=== PATIENT | male | born 1950 | race Caucasian/White ===

== ENCOUNTER → 2020-03-03 | Outpatient (CLI) | payer MEDICARE, OTHER | LOC: GMAJ 17:21 | PROVIDERS: ATTEND Family Medicine | DX: N41.0 Acute prostatitis (principal) ==

== ENCOUNTER → 2020-04-30 | Outpatient (CLI) | payer MEDICARE, OTHER | LOC: GMAJ 17:26 | PROVIDERS: ATTEND Family Medicine | DX: N30.01 Acute cystitis with hematuria (principal) ==

== ENCOUNTER → 2020-05-21 | Outpatient (CLI) | payer MEDICARE, OTHER ==
--- NOTE | 2020-05-22 09:28 | CT ---
EXAM DESCRIPTION: Abdoment/Pelvis w/o Contrast CLINICAL HISTORY: 69 years, Male, UTI COMPARISON: None. TECHNIQUE: CT of the abdomen and pelvis is performed according to our non contrast protocol. FINDINGS: The lung bases are clear. Heart size is normal. No pericardial effusion. Liver, spleen, and pancreas are unremarkable. Gallbladder is surgically absent. Adrenal glands appear normal. The right kidney is unremarkable. The left kidney is unremarkable. No renal stones or hydronephrosis. Small bowel loops appear normal in caliber with normal wall thickness. There is no lymphadenopathy, inflammation, or free fluid observed. In the pelvis, the appendix is normal in size with no surrounding inflammation. High density in the appendiceal lumen could be old contrast or small appendicoliths. No inflammation around the cecum or terminal ileum or sigmoid colon. Extensive sigmoid diverticulosis without acute diverticulitis. No stones in the distal ureters or bladder. Large right posterior lateral bladder diverticulum contains urine and air and measures 4.7 cm. Air in the main bladder lumen is also present and the bladder wall is mildly thickened. Sagittal and coronal images show loss of the fat plane between the sigmoid colon and posterior urinary bladder with broad area of increased thickening of the bladder wall. On the coronal images, tiny gas bubble is seen within the wall of the bladder (coronal image 78, series 602 and loss of the fat plane with small gas bubble between the sigmoid colon and bladder wall is seen on images 69 through 76, series 602. 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 Gas bubbles in the bladder wall are seen on sagittal images 108 through 113 with gas in the bladder lumen and gas in the large bladder diverticulum. No fistula to the diverticulum itself. Rectal wall thickness is normal for degree of distention. No free fluid or mass in the pelvis. Prostate appears normal. No inguinal or lower pelvic adenopathy. Coronal and sagittal reformatted images confirm the findings. 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 I discussed results over the phone with the nurse at Dr. Sanchez's office at the time of image interpretation 9:25 AM on 05/22/2020. 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 See above. Large right posterolateral bladder diverticulum. This exam was performed according to our departmental dose-optimization program, which includes automated exposure control, adjustment of the mA and/or kV according to patient size and/or use of iterative reconstruction technique. Total DLP equals 908.61 mGycm. Electronically signed by: Gerald Allan MD 05/22/2020 9:26 AM [facility]
== END ==
LOC: CT 13:44
PROVIDERS: ATTEND Urology
DX: N39.0 Urinary tract infection, site not specified (principal); N32.3 Diverticulum of bladder; K63.9 Disease of intestine, unspecified

== ENCOUNTER 2020-06-06 05:44 | Day surgery (SDC) | payer MEDICARE, OTHER ==
[2020-06-06] MEDS ORDERED: LIDOCAINE 1% 10 ML VIAL INJ ONE (07:00)
[2020-06-06] MEDS ORDERED: PROPOFOL 200 MG/20 ML VIAL IV ONE (07:00)
[2020-06-06] MEDS ORDERED: LACTATED RINGERS 1,000 ML ONE (07:05)
--- NOTE | 2020-06-06 11:04 | OP ---
DATE OF PROCEDURE: 06/06/20 PREOPERATIVE DIAGNOSIS: 1. Suspected colovesical fistula. POSTOPERATIVE DIAGNOSIS: 1. Mild diverticulosis. PROCEDURE: 1. Colonoscopy. SURGEON: Shaggy Banegas MD ANESTHESIA: General, Charles Tamayo CRNA. FINDINGS: No significant polyps were seen. No evidence of mass. A few diverticula were seen in the mid distal sigmoid colon. COMPLICATIONS: None. ESTIMATED BLOOD LOSS: None. PLAN: Discharge. INDICATION: This gentleman presented with recurrent urinary tract infections and suspicion for colovesical fistula. He is here for colonoscopy. PROCEDURE: The patient was in lateral position. General anesthesia was induced. Digital rectal exam was normal. The colonoscope was inserted without difficulty. The scope was passed with minimal effort to the cecum as identified by the appendiceal orifice. Upon withdrawal, there was an adequate prep and the mucosal surfaces appeared normal. No polyps were seen. As we got into the sigmoid colon, very few diverticula were noted. None of them appeared actively inflamed. There was no mass effect identified with any of them. No obvious nidus for the fistula at this point. He was awakened and was taken to Recovery to be discharged. Cystoscopy will be done very shortly for additional evaluation and we will discuss probable surgery versus continued conservative management as we discussed in the office with the patient #[id number] cc: Shaggy Zaidi MD [facility]
[2020-06-06 11:18] VITALS: BP 133/73; TEMP 97.8; O2SAT 99
== END 2020-06-06 11:10 | disposition home or self-care (01) ==
LOC: AMB 05:44
PROVIDERS: ATTEND Surgery
DX: K57.30 Diverticulosis of large intestine without perforation or abscess without bleeding (principal); E78.00 Pure hypercholesterolemia, unspecified; Z87.19 Personal history of other diseases of the digestive system; Z88.5 Allergy status to narcotic agent; Z79.82 Long term (current) use of aspirin; Z79.899 Other long term (current) drug therapy
CPT/HCPCS: 00811; 45378; J3490; J7120